=== PATIENT | female | born 1985 | race Caucasian/White ===

== ENCOUNTER 2018-09-24 09:37 | Inpatient (IN) | payer OTHER ==
[~2018-09-24] VITALS: Ht 154.9 cm; Wt 77.0 kg
[2018-09-24] MEDS ORDERED: D5%-LACTATED RINGERS 1,000 ML IV SCH (09:57)
[2018-09-24] MEDS ORDERED: OXYTOCIN 30U/ 0.9% NaCL 500ML 500 ML IV PRN (09:57)
[2018-09-24] MEDS ORDERED: FENTANYL/BUPIV./NS/PF 250 ML EPIDCONT SCH ×2 (09:59→12:54)
[2018-09-24] MEDS ORDERED: CALCIUM CARBONATE 500 MG TAB.CHEW PO PRN (10:00)
[2018-09-24] MEDS ORDERED: ONDANSETRON 2MG/ML, 2ML IVPush PRN (10:00)
[2018-09-24] MEDS ORDERED: SODIUM CITRATE/CITRIC ACID 30 ML UDC PO PRN (10:00)
[2018-09-24] MEDS ORDERED: ALUMINUM/MAG/SIMETHICONE 30 ML UDC PO PRN (10:00)
[2018-09-24] MEDS ORDERED: FENTANYL PF 100 MCG/2ML IVPush PRN (10:00)
[2018-09-24] MEDS: LACTATED RINGERS 1,000 ML IV SCH ×2 (10:23→17:57)
[2018-09-24] MEDS ORDERED: PLEASE ENTER HEIGHT AND WEIGHT MC SCH (10:30)
[2018-09-24] MEDS ORDERED: PLEASE ENTER ALLERGIES MC SCH (10:30)
[2018-09-24] MEDS ORDERED: LIDOCAINE/PF 1%, 30ML ONE (10:47)
[2018-09-24] MEDS ORDERED: MISOPROSTOL 200 MCG TABLET ONE (10:47)
[2018-09-24] MEDS ORDERED: NEWBORN KIT ONE (10:47)
[2018-09-24] MEDS ORDERED: OXYTOCIN 30U/ 0.9% NaCL 500ML 500 ML ONE ×2 (10:47→22:08)
[2018-09-24] MEDS ORDERED: FENTANYL PF 500 MCG, BUPIVACAINE/PF 0.5%, 30ML 62.5 ML in SODIUM CHLORIDE 0.9% 177.5 ML EPIDCONT SCH ×2 (11:00→13:30)
[2018-09-24 12:29] LABS: BASOPHILS # (AUTO) 0.03 x10^3/uL (0-0.1); BASOPHILS % (AUTO) 0 % (0-1); EOSINOPHILS % (AUTO) 1 % (1-7); LYMPHOCYTES # (AUTO) 1.94 x10^3/uL (1-3.4); LYMPHOCYTES % (AUTO) 16 % (22-44); MD NO; MEAN CORPUSCULAR HEMOGLOBIN 28.7 pg (27.0-34.8); MEAN CORPUSCULAR VOLUME 87.1 fL (80-100); MEAN PLATELET VOLUME 11.1 fL (7.4-10.4); MONOCYTES # (AUTO) 0.69 x10^3/uL (0.2-0.8); MONOCYTES % (AUTO) 6 % (2-9); NEUTROPHILS % (AUTO) 77 % (42-75); PLATELET COUNT 241 x10^3/uL (130-400); RED BLOOD COUNT 4.58 x10^6/uL (3.82-5.3); RED CELL DISTRIBUTION WIDTH 14.4 % (9.6-15.2)
[2018-09-24] MEDS ORDERED: LACTATED RINGERS 1,000 ML IV SCH (12:54)
[2018-09-24] MEDS ORDERED: EPHEDRINE 50 MG/ML, 1ML IVPush PRN (13:00)
[2018-09-24] MEDS ORDERED: NALOXONE 0.4 MG/ML, 1ML IVPush PRN (13:00)
[2018-09-24] MEDS: LACTATED RINGERS 1,000 ML IVBOLUS PRN ×2 (17:31→18:23)
[2018-09-24] MEDS ORDERED: FENTANYL PF 100 MCG/2ML ONE (17:47)
[2018-09-24] MEDS ORDERED: FENTANYL/BUPIV./NS/PF 250 ML EPIDCONT ONE (18:06)
[2018-09-24] MEDS ORDERED: BUPIVACAINE 0.25% ONE (18:06)
[2018-09-24] MEDS: OXYTOCIN 30U/ 0.9% NaCL 500ML 500 ML IV SCH (20:08)
[2018-09-24] MEDS ORDERED: DIPH,PERTUSS(ACELL),TET VAC/PF NC IM-VACC PRN (20:30)
[2018-09-24] MEDS ORDERED: ACETAMINOPHEN 325 MG TABLET PO PRN (20:30)
[2018-09-24] MEDS ORDERED: DOCUSATE 100 MG CAPSULE PO PRN (20:30)
[2018-09-24] MEDS ORDERED: MEASLES,MUMPS&RUBELLA VACC/PF 0.5 ML SQ PRN (20:30)
[2018-09-24] MEDS ORDERED: RHOGAM FROM BLOOD BANK 1 NOTE EA IM/IV ONE (20:30)
[2018-09-24] MEDS ORDERED: MISOPROSTOL 200 MCG TABLET PR PRN (20:30)
[2018-09-24] MEDS ORDERED: METHYLERGONOVINE 0.2 MG/ML IM PRN (20:30)
[2018-09-24] MEDS ORDERED: CARBOPROST TROMETHAMINE 250 MCG/ML, 1ML IM PRN (20:30)
[2018-09-24 23:00] VITALS: BP 131/84
[2018-09-24] MEDS: OXYcodone/APAP 5/325MG TABLET PO PRN (23:11)
[2018-09-24] MEDS: IBUPROFEN 600 MG TABLET PO PRN (23:11)
[2018-09-25 03:20] VITALS: BP 110/72
[2018-09-25] MEDS: OXYcodone/APAP 5/325MG TABLET PO PRN (03:20)
[2018-09-25] MEDS: IBUPROFEN 600 MG TABLET PO PRN ×2 (05:39→21:17)
[2018-09-25 06:00] LABS: BASOPHILS # (AUTO) 0.02 x10^3/uL (0-0.1); BASOPHILS % (AUTO) 0 % (0-1); EOSINOPHILS # (AUTO) 0.07 x10^3/uL (0-0.4); EOSINOPHILS % (AUTO) 1 % (1-7); LYMPHOCYTES # (AUTO) 1.89 x10^3/uL (1-3.4); LYMPHOCYTES % (AUTO) 15 % (22-44); MD NO; MEAN CORPUSCULAR HEMOGLOBIN 29.3 pg (27.0-34.8); MEAN CORPUSCULAR HGB CONC 33.8 g/dL (32.4-35.8); MEAN CORPUSCULAR VOLUME 86.8 fL (80-100); MEAN PLATELET VOLUME 10.4 fL (7.4-10.4); MONOCYTES # (AUTO) 0.84 x10^3/uL (0.2-0.8); MONOCYTES % (AUTO) 7 % (2-9); NEUTROPHILS % (AUTO) 78 % (42-75); PLATELET COUNT 190 x10^3/uL (130-400); RED BLOOD COUNT 4.05 x10^6/uL (3.82-5.3); RED CELL DISTRIBUTION WIDTH 14.4 % (9.6-15.2)
[2018-09-25] MEDS: OXYTOCIN 30U/ 0.9% NaCL 500ML 500 ML IV SCH ×2 (06:08→08:51)
[2018-09-25 07:15] VITALS: BP 108/69
[2018-09-25] MEDS: PRENATAL VIT/IRON/FA 1 EACH TABLET PO SCH (07:54)
[2018-09-25 21:42] VITALS: BP 128/75
[2018-09-26] MEDS: OXYTOCIN 30U/ 0.9% NaCL 500ML 500 ML IV SCH (02:08)
[2018-09-26 08:20] VITALS: BP 112/73
[2018-09-26] MEDS: PRENATAL VIT/IRON/FA 1 EACH TABLET PO SCH (08:31)
[2018-09-26] MEDS ORDERED: IBUP-1222 PO (09:38)
== END 2018-09-26 12:07 | disposition home or self-care (01) | DRG 807 ==
LOC: LDOP 09:37 → LDIP 09:49 → 2NW 22:36
PROVIDERS: ADMIT Obstetrics & Gynecology; ATTEND Obstetrics & Gynecology
PROC: 10E0XZZ Delivery of Products of Conception, External Approach (ICD-10-PCS; principal; 2018-09-24)
PROC: 3E0R3BZ Introduction of Anesthetic Agent into Spinal Canal, Percutaneous Approach (ICD-10-PCS; 2018-09-24)
PROC: 00HU33Z Insertion of Infusion Device into Spinal Canal, Percutaneous Approach (ICD-10-PCS; 2018-09-24)
DX: O69.81X0 Labor and delivery complicated by cord around neck, without compression, not applicable or unspecified (principal); Z37.0 Single live birth; O24.429 Gestational diabetes mellitus in childbirth, unspecified control; Z3A.38 38 weeks gestation of pregnancy; O77.0 Labor and delivery complicated by meconium in amniotic fluid
CPT/HCPCS: 36415; 76815; 82947; 82962; 85025; 86850; 86900; 90715; G0378; J3010; J3490; J2590; J7120